=== PATIENT | female | born 2000 | race Caucasian/White ===

== ENCOUNTER 2023-05-24 23:31 | Emergency (ER) | payer MEDICAID ==
[~2023-05-24] VITALS: Ht 162.6 cm; Wt 48.5 kg
[2023-05-24 23:41] VITALS: BP_SYST 134; PULSE 100; RESP 20; TEMP 97.9; O2SAT 99
[2023-05-25] MEDS ORDERED: NACL 0.9% 1,000 ML IV ONE
[2023-05-25] MEDS ORDERED: LORazepam 2 MG/ML VIAL IVP ONE (00:30)
[2023-05-25 00:45] LABS: BASOPHILS # (AUTO) 0.1 K/uL (0.0-0.2); BASOPHILS % (AUTO) 1.3 % (0.0-2.0); EOSINOPHILS % (AUTO) 0.6 % (0.0-4.0); HEMATOCRIT 36.6 % (36-48); HEMOGLOBIN 12.2 g/dL (12.0-16.0); LYMPHOCYTES # (AUTO) 1.9 K/uL (1.0-5.5); LYMPHOCYTES % (AUTO) 38.6 % (20.5-51.5); MEAN CORPUSCULAR HEMOGLOBIN 31 pg (27-31); MEAN CORPUSCULAR HGB CONC 33 % (32-36); MEAN CORPUSCULAR VOLUME 92 fL (79.0-98.0); MONOCYTES # (AUTO) 0.4 K/uL (0.0-1.0); MONOCYTES % (AUTO) 8.1 % (1.7-9.3); NEUTROPHILS # (AUTO) 2.6 K/uL (1.8-7.7); NEUTROPHILS % (AUTO) 51.4 % (40.0-70.0); PLATELET COUNT (AUTO) 281 K/uL (130-430); RED BLOOD CELL COUNT(AUTO) 3.98 MIL/uL (4.2-6.2); RED CELL DISTRIBUTION WIDTH 13.6 % (9.0-15.0)
[2023-05-25 00:52] LABS: ALBUMIN 3.7 g/dL (3.4-4.8); BILIRUBIN,DIRECT 0.1 mg/dL (0.0-0.3); CALCIUM 9.5 mg/dL (8.4-11.0); CREATININE 0.62 mg/dL (0.55-1.30); POTASSIUM 3.3 mmol/L (3.5-5.1); TOTAL BILIRUBIN 0.5 mg/dL (0.0-1.0); TOTAL PROTEIN, SERUM 7.1 g/dL (6.4-8.3)
[2023-05-25 01:29] LABS: BILIRUBIN,URINE 1+ (NEGATIVE); BLOOD, URINE 2+ (NEGATIVE); CLARITY/URINE CLEAR (CLEAR); COLOR,URINE YELLOW (YELLOW); GLUCOSE,URINE NEGATIVE (NEGATIVE); KETONES,URINE 1+ (NEGATIVE); LEUKOCYTE ESTERASE ,URINE NEGATIVE (NEGATIVE); NITRITE, URINE NEGATIVE (NEGATIVE); PROTEIN URINE 1+ (NEGATIVE); UROBILINOGEN,URINE 0.2 (0.2-1.0)
[2023-05-25 01:52] LABS: BACTERIA,URINE RARE /HPF (None Seen)
[2023-05-25 05:55] VITALS: BP_SYST 121; PULSE 82; RESP 18; TEMP 97.2; O2SAT 96
== END 2023-05-25 06:00 | disposition home or self-care (01) ==
LOC: SED 23:31
DX: F15.129 Other stimulant abuse with intoxication, unspecified (principal); F15.10 Other stimulant abuse, uncomplicated; Z79.899 Other long term (current) drug therapy
CPT/HCPCS: 99283; 80076; 80048; 81001; 83690; 85025; 36415; 81025; 81000; 96374; 96361; 81015; J2060; J7030